=== PATIENT | female | born 1965 | race Caucasian/White ===

== ENCOUNTER 2022-09-14 17:19 | Emergency (ER) | payer OTHER, BC, SELFPAY ==
--- NOTE | ~2022-09-14 | US_ITS ---
EXAMINATION: US VENOUS ULTRASOUND WITH DOPPLER LOWER EXTREMITY, RIGHT CLINICAL INFORMATION: Pain. COMPARISON: None TECHNIQUE: Ultrasound of the deep veins is performed from the hip to the calf with compression sonography and color and pulse Doppler assessment. Spectral analysis with color-flow imaging is performed. FINDINGS: There is normal venous compression and respiratory variation and augmented flow. The visualized common femoral vein, superficial femoral vein, profunda femoral vein, popliteal vein, and the trifurcation region shows no evidence of deep venous thrombosis. There is no significant popliteal fossa cyst. If the patient's symptoms persist, followup ultrasound in 5 days 7 days might be of value to exclude proximal propagation from a non-visualized calf vein. US/US venous duplex LE RT IMPRESSION: No DVT demonstrated in the right lower extremity.
--- NOTE | ~2022-09-14 | XR_ITS ---
EXAMINATION: XR TIBIA AND FIBULA, RIGHT CLINICAL INFORMATION: Pain COMPARISON: None TECHNIQUE: AP and lateral views of the right tibia and fibula were obtained. FINDINGS: No acute fracture or dislocation. No osseous lesion. No periostitis. Tricompartmental knee joint osteoarthritis with moderate to severe medial compartment joint space narrowing. Mild ankle joint osteoarthritis also noted. XR/XR tibia fibula RT 2V IMPRESSION: 1. No acute osseous injury. 2. 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
[2022-09-14 17:29] VITALS: BP 154/98; PULSE 87; RESP 20; TEMP 36.2; O2SAT 99; BMI 41.0
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
[2022-09-14 18:00] LABS: Basophils Percent Auto 0.6 % (0-2); Eosinophils Absolute Auto 0.1 X10*3/uL (0.0-0.4); Hematocrit 39.7 % (37.0-47.0); Hemoglobin 13.3 g/dl (12.0-16.0); Imm Gran Abs Auto 0.01 X10*3/uL (0.00-0.03); Imm Gran Pct Auto 0.2 % (0.0-0.4); Lymphocytes Absolute Auto 1.6 X10*3/uL (1.2-4.9); Lymphocytes Percent Auto 29.8 % (20-40); MANUAL DIFF FLAG NO; Mean Corpuscular HGB Conc 33.5 g/dl (31.0-35.0); Mean Corpuscular Hemoglobin 29.1 pg (27.0-33.0); Mean Corpuscular Volume 86.9 fL (80.0-98.0); Mean Platelet Volume 10.2 fL (9.4-12.3); Monocytes Absolute Auto 0.6 X10*3/uL (0.1-1.2); Monocytes Percent Auto 11.1 % (2-11); Neutrophils Percent Auto 57.3 % (45-73); Platelet Count 192 X10*3/uL (160-400); Red Blood Count 4.57 X10*6/uL (4.20-5.50); Red Cell Distribution Width 13.6 % (11.0-16.0); White Blood Count 5.2 X10*3/uL (4.8-10.8)
[2022-09-14 18:07] LABS: INTERNATIONAL NORM RATIO 0.9 (0.9-1.1); Prothrombin Time 10.7 SEC (10.0-13.1)
[2022-09-14 18:24] LABS: Anion Gap 12 (12-20); Blood Urea Nitrogen 25 mg/dL (9-16); Calcium 8.8 mg/dL (8.4-10.2); Carbon Dioxide 27 mmol/L (22-29); Chloride 103 mmol/L (96-108); Creatinine Clr Calc Pharmacy 88.1; Estimated Glomerular Filt Rate > 60; Glucose Random 108 mg/dL (60-115); Potassium 3.7 mmol/L (3.3-5.1); Sodium 138 mmol/L (135-145)
[2022-09-14 18:51] VITALS: BP 152/73; PULSE 75; RESP 16; TEMP 37.1; O2SAT 98
[2022-09-14 19:11] LABS: D Dimer High Sensitivity 194 NG/ML
== END 2022-09-14 19:48 | disposition home or self-care (01) ==
PROVIDERS: Nurse Practitioner Family; Emergency Provider Emergency Medicine
DX: M54.16 Radiculopathy, lumbar region (principal); M79.604 Pain in right leg
CPT/HCPCS: 36415; 73590; 80048; 85025; 85379; 85610; 93971; 99282; 99284

== ENCOUNTER 2023-05-30 14:59 | Outpatient (AMB) | payer BC, SELFPAY ==
[2023-05-30 15:21] VITALS: BMI 41.0
--- NOTE | 2023-05-30 15:21 | A.OFFVIS_ITS ---
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 States pain started about 6-8 weeks ago. No injury she can recall. States it starting with clicking in the thumb, currently states she has increase swelling. Pain is triggered with over use of thumb. States she made her own finger splint and help for a little bit. Denies numbness, tingling or locking if fingers. Allergies amoxicillin [AMOXICILLIN] Allergy (Unknown, Unverified 05/30/23 15:26) RASH,HIVES Penicillins [PENICILLINS] Allergy (Unknown, Unverified 05/30/23 15:26) ? RXN Sulfa (Sulfonamide Antibiotics) [SULFA(SULFONAMIDE ANTIBIOTICS)] Allergy (Unknown, Unverified 05/30/23 15:26) ? 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 She complains of pain in her right thumb for ~6-8 weeks now. She says she has painful clicking in her thumb as well as swelling. Her thumb is no longer clicking but she cannot fully extend her thumb She says her pain is worse with overuse of her thumb. She is unsure if her thumb locks as she has been babying it She denies any falls or known injury. She denies any numbness or tingling. 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 [facility] Social History (Updated 05/30/23 @ 15:30 by DAVID Rincon) Current occupational status: employed Current occupation: [employer]. 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 Review of Systems Const All systems reviewed & are unremarkable except as noted in HPI and below Physical Exam Vital Signs: BMI result Body Mass Index 41.0 Const General: cooperative, healthy appearing and no acute distress Orientation/consciousness: patient oriented x3 HEENT Head: Yes normocephalic and Yes atraumatic Eyes EOM: EOMs intact bilaterally Resp Effort & Inspection: normal respiratory effort and able to speak in complete sentences Cardio Jugular venous distension: no JVD Skin General skin exam: turgor normal Rashes: no rashes Neuro General: patient oriented x3 Extrem Other: Evaluation of Right Upper Extremity: The patient is alert, oriented, and in no acute distress Neuro: Median, Ulnar, Radial nerves motor and sensory intact and sensation is normal to the tips of all digits Vascular: Cap refill brisk ROM: She can make a fist and extend all her digits Her thumb is stuck in a slight position of flexion Tender over the a1 huang of the thumb [ ] locking and catching of the thumb No tenderness over the 1st dorsal compartment of the thumb No tenderness over the basal joint Skin: No lacerations or abrasions. General: No Ecchymosis. No Erythema or evidence of infection. Psych Appearance: grossly normal Affect: normal affect Attitude: cooperative Office Procedures Fracture Care Details: No fracture, injection Fracture Billing Code: Fracture Billing Code Results Reviewed Results Reviewed: 05/30/23 15:42 Lidocaine HCl 1 % [Xylocaine 1 %] 2 ml .ROUTE .STK-MED ONE dexAMETHasone sod phosphate [Decadron] 4 mg .ROUTE .STK-MED ONE Assessment & Plan Assessment & Plan (1) Trigger thumb, right thumb: Code(s): M65.311 - Trigger thumb, right thumb Plan Assessment & Plan: 1. Right trigger thumb I educated her about this condition I discussed operative and non-operative treatment options The patient would like to proceed with an injection Injection #1: The risks and benefits of a steroid injection including but not limited to risk of damage to blood vessels, nerves, tendons, infection, skin bleaching, failure to improve symptoms, increased pain, and possible need for further injections or other intervention were discussed with the patient and the patient wishes to proceed with the steroid injection. Once consent was obtained, I sterilely prepped the area over the A1 huang of the flexor tendon sheath of the right thumb. I then injected the flexor tendon sheath with a combination of 1 mL of dexamethasone (4mg/ml), and 1% lidocaine. The patient tolerated the procedure well with no complications. If the patient continues to have locking and catching 4-6 weeks following this injection, they may call to schedule appointment to discuss alternative treatment options Follow-up prn Scribed for Susu Henson MD by cristopher Pride scribe, on 05/30/23 at 3:40 PM, EST. Coding Level of Care Code New Pt Level 3 (60750) Diagnoses Trigger thumb, right thumb M65.311 CPT Codes Fracture Care - Fracture Billing Code: Fracture Billing Code ([id number])
== END 2023-05-30 16:00 ==
PROVIDERS: Visit Provider Orthopaedic Surgery
DX: M65.311 Trigger thumb, right thumb (principal)
CPT/HCPCS: 20550; 99204

== ENCOUNTER → 2023-05-30 14:59 | Outpatient (BNVA) | payer BC, SELFPAY | PROVIDERS: Visit Provider Orthopaedic Surgery | DX: M65.311 Trigger thumb, right thumb (principal) | CPT/HCPCS: J1100 ==

== ENCOUNTER 2024-06-02 12:40 | Emergency (ER) | payer OTHER, SELFPAY ==
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
[2024-06-02 13:15] VITALS: BP 154/90; PULSE 71; RESP 16; TEMP 36.3; O2SAT 98; BMI 44.9
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
[2024-06-02 15:31] VITALS: BP 187/82; PULSE 66; RESP 20; TEMP 36.6; O2SAT 98
[2024-06-02 15:32] VITALS: BP 187/82; PULSE 66; RESP 20; TEMP 36.6; O2SAT 98
== END 2024-06-02 15:32 | disposition home or self-care (01) ==
PROVIDERS: Emergency Provider Emergency Medicine; PCP Physician Assistant Medical
DX: S16.1XXA Strain of muscle, fascia and tendon at neck level, initial encounter (principal); R51.9 Headache, unspecified; M54.2 Cervicalgia; V43.52XA Car driver injured in collision with other type car in traffic accident, initial encounter; Y93.89 Activity, other specified; Y92.488 Other paved roadways as the place of occurrence of the external cause; Y99.8 Other external cause status
CPT/HCPCS: 70450; 72125; 99283; 99284

== ENCOUNTER 2025-06-11 06:26 | Emergency (ER) | payer OTHER, SELFPAY ==
[2025-06-11 06:31] VITALS: BP 146/74; PULSE 66; RESP 20; TEMP 36.7; O2SAT 99; BMI 43.0
--- NOTE | 2025-06-11 07:28 | ED.FEMALEGU ---
HPI - Female Genitourinary General Chief complaint: Urogenital-Female Stated complaint: bladder issues Time Seen by Provider: 06/11/25 07:13 Source: patient Mode of arrival: ambulatory Limitations: no limitations History of Present Illness ED Provider: IAN Arcos HPI Narrative: 59-year-old female with medical history of depression, RADHA, restless legs syndrome, GERD, asthma, presents to the ED due to vaginal bulging. Patient states for the past 3 weeks she has been experiencing itching on the right side of her labia majora which she has been treating with [id number] antifungal cream and a prescription strength hydrocortisone cream with good effect. Patient states yesterday she was using a hand-held mirror to apply cream and noticed tissue bulging from the vaginal opening while applying cream. Patient states she does experience a sensation of vaginal fullness. Patient reports during Pap smear 2 years ago her doctor said her bladder was sitting low and recommended Kegel exercises. Patient denies urinary symptom however does state when urinating she has a sit on the toilet for a few minutes before getting a good urine flow. Patient denies urinary frequency or the sensation that she is retaining urine. Patient has not been sexually active for approximately 10 years and is not worried for STI/STDs at this time. Denies vaginal bleeding, vaginal spotting, increased vaginal discharge, urinary symptoms Related Data Home Medications ?Medication ?Instructions ?Recorded ?Confirmed diclofenac sodium 1 % topical gel g topical BID PRN pain 05/30/23 meloxicam 15 mg tablet 15 mg PO DAILY PRN pain 05/30/23 Previous Rx's ?Medication ?Instructions ?Recorded cyclobenzaprine 5 mg tablet 5 mg PO Q8H #7 tabs 06/02/24 lidocaine 5 % topical patch 1 patch topical DAILY #15 ea 06/02/24 (Lidoderm) Allergies Allergy/AdvReac Type Severity Reaction Status Date / Time amoxicillin (AMOXICILLIN) Allergy Unknown RASH,HIVES Verified 06/11/25 06:35 Penicillins (PENICILLINS) Allergy Unknown ? RXN Verified 06/11/25 06:35 Sulfa (Sulfonamide Allergy Unknown ? RXN Verified 06/11/25 06:35 Antibiotics) (SULFA(SULFONAMIDE ANTIBIOTICS)) Review of Systems Review of Systems: CONST: Negative for fever, body aches and chills. HENT: Negative for neck pain/stiffness, headache, congestion, sore throat, swelling. EYES: Negative for discharge/pain or vision changes. RESP: Negative for cough/hemoptysis and shortness of breath. CV: Negative chest pain, difficulty breathing, palpitations. ABD: Negative pain, nausea, vomiting. : Negative increase frequency, dysuria, blood in urine or stool. POS vaginal fullness with tissue protruding from vaginal opening MUSC: Negative for muscle aches, edema. SKIN: Negative rash, lesions/sores. NEURO: Negative headache, dizziness, weakness. 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 HEENT: ?NC, AT. MMM. EOMI, clear conjunctiva, oropharynx clear. NECK: ?Supple without lymphadenopathy.? No stiffness or restricted ROM. HEART:? Normal rate and regular rhythm, normal S1/S2, no m/r/g LUNGS:? CTAB, moving air well. No crackles or wheezes are heard. ABDOMEN: ?Soft, nontender, nondistended with good bowel sounds heard. : external genitalia without lesions or abnormalities, vaginal canal with mild loss of ruggae, no lesions seen, cervical os without growths, lesions or abnormalities, no blood visualized, no copious vaginal discharge observed. I do not appreciate any tissue bulge during exam, even with valsalva. Bimanual exam without cervical tenderness, adnexal tenderness, uterus is soft and mobile without masses palpated. EXTREMITIES: ?Without cyanosis, clubbing or edema. NEUROLOGICAL: ?Grossly nonfocal. Alert and oriented, moving all 4 extremities. Observed to ambulate with normal gait. Skin: ?Warm and dry without any rash. Medical Decision Making Medical Decision Making MDM Narrative: 61-year-old female presents with complaint of tissue protruding from the vagina with vaginal fullness raising concerns for pelvic organ prolapse such as uterine, cystocele, rectocele or enterocele. On today's exam pelvic exam is normal without evidence of significant descend or prolapse at rest or with Valsalva maneuver. No indication of lichen planus/lichen sclerosis of the vaginal tissue. No acute findings requiring emergent gynecologic or urologic intervention at this time. Patient reports she is having appropriate bowel movements with normal size and caliber, no complaints of constipation. Patient has been without menstrual cycle for ?the past few years?, not currently sexually active for the past 10 years no concerns for STI/STDs. Patient denies vaginal bleeding, vaginal spotting. On chart review patient did have history of abnormal Pap smears with ASCUS and positive HPV 12/02/2011, with colposcopy negative. Most recent Pap smear done in 2013 was NIL with negative HPV. Patient was referred to Urology in 2022 due to urinary frequency and urgency with straining to urinate from her primary care provider but did not go to this referral. No evidence of acute infection or malignancy today, but prior history increases the risk profile and warrants close follow up. UA negative for blood or infection today. I will place referral to Urogynecology. Patient states she is currently getting reestablished with a primary care provider and should be seeing her new provider within the next 2 weeks. Patient was counseled on the importance of following up with Urology, and her primary care provider. Patient with external itching of the labia majora has improved, patient has been using lmvd-ojl-gwouwys ?jock itch? and prescription strength hydrocortisone cream for the past 2 weeks with improvement. I did not appreciate any erythema, scaling of tissue, or any indication of fungal infection. I counseled patient to stop using prescription strength hydrocortisone cream as she has been using this for the past 2 weeks and can cause further irritation. I explained to patient that nothing is emergent today based on physical exam, and UA. Patient is in agreement with the plan and will follow up with Urogynecology. Differential Diagnosis Differential Diagnoses: The differential diagnosis associated with the presentation includes Pelvic organ prolapse Bladder pathology Pelvic floor dysfunction Gynecologic neoplasm Constipation Admission/Observation Consideration of admission/observation: Escalation of care including admission/observation considered Lab Data [facility] Lab Attestation statement: I reviewed the patient's lab results. Independent Historian Clinical information obtained from an independent historian. History obtained from or confirmed by: Other (Chart review) External Record Review External record reviewed: Inpatient record, Office record and Outpatient record Prescription Management I considered prescription management with: Other (Antifungal/hydrocortisone) I considered an antifungal/hydrocortisone cream however on physical exam external genitalia without indication of fungal infection, lichen planus/lichen sclerosis. Patient already using plol-mkt-xcselzw antifungal, and prescription strength hydrocortisone cream. Chronic Conditions Patient?s care impacted by: Hypertension and Other (Depression, RADHA, restless legs syndrome, GERD, asthma) Discharge Plan Discharge Clinical Impression: Vaginal pain Patient Disposition: Home, Self-Care Additional Instructions: You were evaluated in the ED today due to concerns of protruding vaginal tissue. Your physical exam revealed normal external tissue, normal internal vaginal tissue, without bleeding or signs of increased/infected vaginal discharge, there was not evidence of any tissue protruding from the vagina today during exam. Your urinalysis was negative for blood or infection today. I have placed a referral for you to urology, you should call them as they will not call you. Please follow up with your primary care doctor, and urogynecology to ensure improvement and further evaluation of your symptoms. Please return to the ED if you experience vaginal bleeding, vaginal spotting, increased vaginal discharge, increased vaginal pain, or any new/worsening/concerning symptoms. Prescriptions: No Action cyclobenzaprine 5 mg tablet 5 mg PO Q8H Qty: 7 0RF lidocaine [Lidoderm] 5 % adhesive patch,medicated 1 patch topical DAILY Qty: 15 0RF Rx Instructions: leave on most painful area for up to 12 hrs meloxicam 15 mg tablet 15 mg PO DAILY PRN (Reason: pain) diclofenac sodium 1 % gel topical BID PRN (Reason: pain) Referrals: Aster Yanez NP [Nurse Practitioner, Family Practice] Print Language: Serbian
--- OUTSIDE RECORDS SUMMARY | 2025-06-11 07:45 | XMS_ITS | Encounter Summary ---
Author Organization [place] [address] Care Team Providers Care Pcb Designer Name Role Phone Yanely Harrell MD Primary Care Provider [phone] Reason for Visit * Reason Onset Date Comments Genital Prolapse 06/10/2025 Encounter Details Date Type Department Care Team ([facility] st Contact Info) Description 06/10/2025 Telephone Obstetrics and Gynecology - [place] [address] [place] [id number] [facility] [address] [place] [address] Social History Tobacco Use Types Packs/Day Years Used Date Smoking Tobacco: Former Smokeless Tobacco: Never Alcohol Use Standard Drinks/Week Comments Yes 0 (1 standard drink = 0.6 oz pur e alcohol) Comments No Sex and Gender Information Value Date Recorded Sex Assigned at Not on file Legal Sex Female 3:04 PM EST Gender Identity Not on file Sexual Orientation Not on file documented as of this encounter Progress Notes * Kimberly Arriaza RN - 06/10/2025 11:29 AM EDT Spoke with patient Pt states she noticed tissue? Coming out of her vagina. Pt states voiding in small amts and denies VB.Has been told in the past her bladder was low lying and was recommended to see a Uro Invoice Checker MD but never followed up on. Pt advised no open appts today or for several weeks. Advised to seek treatment at UC or ED. Pt given information on location of [facility] and number to call. * Nyla Bob - 06/10/2025 11:12 AM EDT Chief Complaint/problem: genital prolapse How long has the patient had this problem? Today Pt???s EXPEDITER provider: [facility] CNM Last menstrual period (LMP) or EDC (due date): na documented in this encounter Plan of Treatment Not on file documented as of this encounter Visit Diagnoses Not on filedocumented in this encounter Care Teams Pcb Designer Relationship Specialty Start Date End Date Yanely Harrell MD [address] [place] [phone] PCP - General Internal Medicine 10/10/24 documented as of this encounter
--- OUTSIDE RECORDS SUMMARY | 2025-06-11 07:46 | XMS_ITS ---
Author Name [facility] Organization Unknown Care Team Organization Name Specialty Phone Email Start Date End Da te [facility] ACO 05/21/2025 [facility] Yanely Harrell Primary Care 08/01/2023 024 [facility] Raul Iniguez Primary Care 08/09/2022
--- OUTSIDE RECORDS SUMMARY | 2025-06-11 07:46 | XMS_ITS | Patient Health Record ---
Author Organization [facility] Address [address] [place] [address] Care Team Providers Care Form Grader Name Role Phone Andrae Saunders MD Primary Care Provider Guerline Gates Unavailable [phone] Allergies Allergen (clinical drug ingredient) Drug/Non Drug Allergy documented on EMR Reaction Allergy Type Onset Date Status codeine Codeine rash Drug Allergy Active Penicillin rash Drug Allergy Active Substance with sulfonamide structure and antibacterial mechanism of action (substance) Sulfa Antibiotics rash Drug Allergy Active Reason For Referral No Information Medications Medication SIG (Take, Route, Fr equency, Duration) Notes Start Date End Date Status Work Note . . . Patient can sit at work as needed for foot pain until further notice due to chronic foot condition 01/19/2022 Active Meloxicam 15 MG 1 tablet Orally Once a day Active Vitamin D3 Active Social History Tobacco Use: Social History Observation Description Date Details (start date - stop date) Never Smoker NA - NA Tobacco Use/Smoking Question Answer Notes Are you a: nonsmoker Tobacco use other than smoking: Question Answer Notes Are you an other tobacco user? No Problems Problem Type SNOMED Code ICD Code Onset Dates Problem Status W/U Status Risk Notes Problem Plantar wart (10591603) Plantar wart (B07.0) Active confirmed Problem Acquired hallux valgus (28353325) Hallux valgus (acquired), left foot (M20.12) Active confirmed Problem Acquired hallux valgus (08378200) Hallux valgus (acquired), right foot (M20.11) Active confirmed Problem Localized, primary osteoarthritis of the ankle and/or foot (430698402) Osteoarthritis of right ankle and foot (M19.071) Active confirmed Problem Localized, primary osteoarthritis of the ankle and/or foot (526951928) Osteoarthritis of left ankle and foot (M19.072) Active confirmed Plan Of Treatment Pending Test Test Name Order Date X ray : Foot, left 3V 01/19/2022 X ray : Foot, right 3V 01/19/2022 Insurance Providers Payer Name Payer Address Payer Phone Subscriber Number Group Number Insured Name Patient Relationship to Insured Coverage Start Date Coverage End Date [facility] [address] [place] [address] [phone] [id number] Kandice Edouard Self - patient is the insured Medical (General) History Surgical History Surgery Date(Month/Year)
--- OUTSIDE RECORDS SUMMARY | 2025-06-11 07:46 | XMS_ITS | Clinical Summary ---
Author Organization [address] Address [address] [place] [address] Phone Care Team Providers Care User Support Analyst Name Role Phone Yanely Harrell MD Primary Care Provider [phone] Allergies Active Allergy Reactions Criticality Noted Date Comments Amoxicillin Trihydrate 03/08/2006 Penicillin G Potassium 03/08/2006 Sulfa (Sulfonamide Antibiotics) 01/30 Medications cholecalciferol (VITAMIN D-3) 50 mcg (2,000 unit) capsule Take by mouth. A ctive albuterol HFA (PROAIR HFA ; PROVENTIL HFA ; VENTOLIN HFA) 90 mcg/actuation inhaler Inhale 2 Puffs into the lungs every 6 hours as needed for Cough or Wheezing. 0 Active inhalat.spacing dev,large mask spacer Use with albuterol inhaler 0 Active loratadine (CLARITIN) 10 mg tablet Take 1 Tab by mouth daily for 360 days. 9 Active multivitamin with minerals tablet Take 1 tablet by mouth 1 (one) time each day. Active buPROPion (WELLBUTRIN) 75 mg tablet Take 1 tablet (75 mg total) by mouth 2 (two) times a day. 60 each 3 5 Active cholecalciferol (Vitamin D3) 5,000 Units tablet Take 1 tablet (5,000 Units total) by mouth 1 (one) time each day. Active meloxicam (MOBIC) 15 mg tablet TAKE 1 TABLET BY MOUTH DAILY NEEDED FOR PAIN 90 tablet 1 5 Active Active Problems Problem Noted Date Diagnosed Date Morbid obesity with BMI of 4 0.0-44.9, adult ([facility] V24, [facility] V28) 09/20/2024 Vitamin D deficiency 07/26/2021 Depression 05/01/2019 Obstructive sleep apnea 01/18/2016 Overview (09/19/2024): ResScan 03/13/2016 to 04/11/2016. CPAP@ 6-16/Average 9.6/Max 10.1. 70% compliant with using the machine for >4 hours/day. Average use is 4.75 hours a night with AHI 2.3. RLS (restless legs syndrome) 06/11/2014 GERD (gastroesophageal reflux disease) 4 Mass of scalp 05/13/2014 Papanicolaou smear of cervix with atypical squamous cells of undetermined significance (ASC-US) 01/20/2009 Overview (09/19/2024): Colpo neg on 01/14/09. Paps done at [facility] and no HPV results. Pap 12/02/11 ASCUS and positive HPV ([id number]), colposcopy - 01/05/12 - neg BX & ECC 2013 Pap NIL neg HPV 2022 Pap NIL neg HPV Asthma 03/08/2006 Encounters Date Type Department Care Team Description 06/10/2025 Telephone Obstetrics and Gynecology - [place] [address] [place] [address] Nakia East CNM from Last 3 Months Immunizations Name Administration Dates Next Due Influenza trivalent, 0.5mL, preservative free (Fluarix; FluLaval; Fluzone) ages 6mo and older (Afluria) 3 years and older 10/24/2012,06/29/2010 Measles 02/19/2002 Mumps 02/19/2002 PPD Test 02/21/2018, 6,06/04/2014,2012,06/08/2006,12/25/2002,02/19/2002 Rubella 02/19/2002 Tdap Tetanus diptheria acell ular pertussis (Boostrix; Adacel) 7yo and older 10/19/2022,08/11/2010 Zoster recombinant (Shingrix ) 19yo and older 04/06/2022,01/01/2022 Surgical History Surgery Date Site/Laterality Comments KNEE SURGERY 01/2012 Right PROCEDURE: HISTORICAL KNEE SURGERY Medical History Medical History Date Comments Unspecified asthma(493.90) 03/08/2006 DX:Un specified asthma(493.90) Perforation of tympanic memb daisha, unspecified 03/08/2006 DX:Perforation of tympanic m embrane, unspecified Morbid obesity ([facility] V24, [facility] V28) 11/28/2013 DX:Morbid obesity ([facility]) Other specified personal his tory presenting hazards to health(V15.89) DX:Other specifie d personal history presenting hazards to health(V15.89) GERD (gastroesophageal reflux disease) 06/05/2014 DX:GERD (gastroesophageal reflux disease) Family History Medical History Relation Name Comments Breast cancer Aunt p ? age maternal Melanoma Brother Diabetes Father , Alzhe philip's Hypertension Father Stroke Father Other: Other Maternal Grandfather estrang ed from family Other: Other Maternal Grandmother in her 50s Arthritis Mother Diabetes Mother thyroid, chayo [place] Hypertension Mother ? [place] Stroke Mother Thyroid disease Mother Breast cancer Mother's side maternal aunt , paternal aunt and cousin Breast cancer Other 1 p cousin 40s paternal cousi n Other: alzheimer's Other 2 two pater nal aunts Crohn's disease Other 3 niece Other: Other Paternal Grandfather estrang ed from family Other: Other Paternal Grandmother ? cause of Thyroid disease Sister 1 Arthritis Sister 2 fibromyalgia Mental illness Sister 2 Major depress ion Cancer of Small Bowel Neg Hx Colon cancer Neg Hx Kidney cancer Neg Hx Ovarian cancer Neg Hx Pancreatic cancer Neg Hx Uterine cancer Neg Hx Relation Name Status Comments Aunt p ? age Brother Father Maternal Grandfather Maternal Grandmother Mother Mother's side Other 1 p cousin 40s Alive Other 2 Other 3 niece Alive Paternal Grandfather Paternal Grandmother Sister 1 Sister 2 Social History Tobacco Use Types Packs/Day Years Used Date Smoking Tobacco: Former Smokeless Tobacco: Never Alcohol Use Standard Drinks/Week Comments Yes 0 (1 standard drink = 0.6 oz pur e alcohol) Comments No Sex and Gender Information Value Date Recorded Sex Assigned at Not on file Legal Sex Female 3:04 PM EST Gender Identity Not on file Sexual Orientation Not on file Obstetrics History Last Filed Vital Signs Vital Sign Reading Time Taken Comments Blood Pressure 132/82 01/30/2025 1:21 PM EDT Pulse 76 01/30/2025 1:21 PM EDT Temperature 36.4 C (97.6 F) 01/30/2025 1:21 PM EDT Respiratory Rate 14 01/30/2025 1:21 PM EDT Oxygen Saturation 98% 01/30/2025 1:21 PM EDT Inhaled Oxygen Concentration - - Weight 107 kg (235 lb) 01/30/2025 1:21 PM EDT Height 152.4 cm (5') 01/30/2025 1:21 PM EDT Body Mass Index 45.9 01/30/2025 1:21 PM EDT Plan of Treatment Health Maintenance Due Date Last Done Comments Pneumococcal Vaccine: 50+ Years (1 of 2 - PCV) 1982 HIV Screening 09/10/2022 Social Influencers of Health Screening 09/10/2022 RSV Immunization Adult Patients (1 - Risk 60-74 years 1-dose series) 2023 Breast Cancer Screening 01/22/2024 01/22/20 22, 05/07/2019, 06/23/2017 Depression Screening 10/02/2024 COVID-19 Vaccine (4 - 2024-2 6 season) 2025 11/01/2021, 01/12/2021, 12/21/2020 Influenza Vaccine (#1) 2025 3, 06/29/2010 Colorectal Cancer Screening: FIT-DNA (Cologuard) 03/26/2027 03/26/2024, 10/31/2022 Cervical Cancer Screening: HPV 02/10/2028 02/09/2023 Cholesterol Screening (Lipid Panel) 03/26/2029 03/26/2024, 03/26/2024 DTaP,Tdap,and Td Vaccines (3 - Td or Tdap) 10/19/2032 10/19/2022, 08/11/2010 Hepatitis C Screening Completed 04/06/2022 Zoster Vaccines Completed 04/06/2022, 01/01/2022 HIB Vaccines Aged Out No longer eligi ble based on patient's age to complete this topic HPV Vaccines Aged Out No longer eligi ble based on patient's age to complete this topic Hepatitis A Vaccines Aged Out No long er eligible based on patient's age to complete this topic Hepatitis B Vaccines Aged Out No long er eligible based on patient's age to complete this topic IPV Vaccines Aged Out No longer eligi ble based on patient's age to complete this topic MMR Vaccines Aged Out No longer eligi ble based on patient's age to complete this topic Meningococcal ACWY Vaccine Aged Out N o longer eligible based on patient's age to complete this topic Meningococcal B Vaccine Aged Out No l onger eligible based on patient's age to complete this topic RSV Immunization Patients Under 20 months Aged Out No longer eligible b ased on patient's age to complete this topic Varicella Vaccines Aged Out No longer eligible based on patient's age to complete this topic Procedures Procedure Name Priority Date/Time Associated Diagnosis Comments FIT-DNA Routine 03/26/2024 LIPID PANEL Routine 03/26/2024 HPV Routine 02/09/2023 HEPATITIS C SCREENING Routine 04/06/2022 SCREENING MAMMOGRAPHY BI 2-VIEW BREAST INC CAD Routine 01/21/2022 1:07 PM EDT Encounter for screening mammogram for malignant neoplasm of breast from Last 3 Months or Most Recently Relevant to Health Maintenance Results * FIT-DNA (Cologuard) (03/26/2024) [facility] Colorectal Cancer Screening: FIT-DNA (Cologuard) No interpretation , Abstracted Historical Provider HEALTH MAINTENANCE Final Result * Lipid panel (03/26/2024) [facility] LDL/HDL Ratio 3 0 - 4 Triglycerides 108 0 - 150 mg/dL Cholesterol 193 0 - 200 mg/dL HDL 77 >=40 mg/dL LDL Cholesterol 95 0 - 100 mg/dL Blood Venous blood specimen / Unknown Historical Provider LAB BLOOD ORDERABLES Radhika l Result * Cervical Cancer Screening: HPV (02/09/2023) Cervical Cancer Screening: HPV Negative, Abstracted Historical Provider HEALTH MAINTENANCE Final Result * Hepatitis C Screening (04/06/2022) Hepatitis C Screening Abstracted Historical Provider [facility] Final Result * SCREENING MAMMOGRAPHY BI 2-VIEW BREAST INC CAD (01/21/2022 1:07 PM EDT) Anatomical Region Laterality Modality Radiographic Em ging 07/26/2021 3:46 PM EDT Narrative 01/24/2022 10:40 AM EDT This is a summary report. The complete report is available in the patient's medical record. If you cannot access the medical record, please contact the sending organization for a detailed fax or copy. Exam: Screening mammogram Findings: Digital bilateral full-field screening mammography is performed with tomosynthesis and interpreted with the aid of computer-aided detection. Comparison is made with 05/07/2019 and 06/23/2017. Breast parenchyma is composed of scattered fibroglandular densities. No new suspicious mass, architectural distortion, or suspicious calcifications. Impression: No mammographic evidence of malignancy. BI-RADS 1 - negative Procedure Note Ashley Engel MD - 09/20/2022 This is a summary report. The complete report is available in thepatient's medical record. If you cannot access the medical record, pleasecontact the sending organization for a detailed fax or copy. Exam: Screening mammogram Findings: Digital bilateral full-field screening mammography is performedwith tomosynthesis and interpreted with the aid of computer-aideddetection. Comparison is made with 05/07/2019 and 06/23/2017. Breast parenchyma is composed of scattered fibroglandular densities. Nonew suspicious mass, architectural distortion, or suspiciouscalcifications. Impression: No mammographic evidence of malignancy. BI-RADS 1 - negative Casie JJ IMG XR PROCEDURES Final Result from Last 3 Months or Most Recently Relevant to Health Maintenance Insurance [facility] ([facility]) Care Teams User Support Analyst Relationship Specialty Start Date End Date Yanely Harrell MD [address] [place] [phone] PCP - General Internal Medicine 10/10/24
[2025-06-11 09:03] VITALS: BP 137/62; PULSE 57; RESP 14; TEMP 36.7; O2SAT 98
[2025-06-11 09:10] LABS: Appearance Urine Clear; Glucose Urine UA Negative (Negative); PH 5.5 (5.0-9.0); Specific Gravity - Urine 1.020 (1.005-1.025)
[2025-06-11 09:30] VITALS: BP 137/62; PULSE 57; RESP 14; TEMP 36.7; O2SAT 98
== END 2025-06-11 09:31 | disposition home or self-care (01) ==
PROVIDERS: Emergency Provider Emergency Medicine; PCP Student in an Organized Health Care Education/Training Program
DX: R10.2 Pelvic and perineal pain (principal); L29.9 Pruritus, unspecified
CPT/HCPCS: 81003; 99282; 99284